=== PATIENT | male | born 1940 | race Caucasian/White ===

== ENCOUNTER 2022-12-22 10:58 | Emergency (ER) | payer MEDICARE ==
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
--- NOTE | 2022-12-22 12:08 | XRAY ---
Indication: Subacute trauma with bleeding. Multiple contiguous axial images obtained through the head without contrast. Comparison: None Left temporal parietal scalp hematoma measuring at least 6.7 x 1.8 x 6.7 cm. Normal appearing brain parenchyma, ventricles, and bony calvarium for patient's age. Visualized paranasal sinuses and mastoid air cells are clear. Impression: Large left temporal parietal scalp hematoma. No underlying fracture or acute intracranial abnormalities.
[2022-12-22 12:59] VITALS: BP 136/56; PULSE 74
[2022-12-22 13:00] VITALS: O2SAT 95
== END 2022-12-22 13:02 | disposition home or self-care (01) ==
LOC: ED 10:58
DX: S00.03XA Contusion of scalp, initial encounter (principal); V89.2XXA Person injured in unspecified motor-vehicle accident, traffic, initial encounter; E78.5 Hyperlipidemia, unspecified; I10 Essential (primary) hypertension; Z79.899 Other long term (current) drug therapy
CPT/HCPCS: 70450; 99283

== ENCOUNTER 2023-06-11 09:02 | Emergency (ER) | payer MEDICARE ==
[2023-06-11 09:19] VITALS: TEMP 96
[2023-06-11 09:27] LABS: Absolute Neutrophil Ct (ANC) 7.96 x10^3/uL (1.4-6.9); BASOPHIL % 0.3 % (0.0-0.4); Basophil (Absolute #) 0.03 x10^3/uL (0-0.4); Eosinophil % 0.3 % (0.00-5.0); Eosinophil (Absolute #) 0.03 x10^3/uL (0-0.5); Hemoglobin 13.7 g/dL (12.5-18.0); IMMATURE GRAN # 0.04 x10^3u/L (0.00-0.03); IMMATURE GRAN % 0.4 % (0.00-0.4); Lymphocyte (Absolute #) 1.24 x10^3/uL (1.0-4.6); Lymphocytes % 12.2 % (24.0-44.0); Mean Cell Volume 96.6 fL (78-100); Mean Corpuscular Hemoglobin 30.8 pg (26-32); Mean Corpuscular Hgb Concent. 31.9 g/dL (32-36); Mean Platelet Volume 10.4 fL (7.5-11.0); Monocyte (Absolute #) 0.88 x10^3/uL (0.0-1.3); Monocytes % 8.6 % (0.0-12.0); Neutrophil % 78.2 % (36.0-66.0); Platelet Count 129 x10^3/uL (150-450); Red Blood Count 4.45 x10^6/uL (4.1-5.6); Red Cell Distribution Width 16.7 % (11.5-14.0); White Blood Count 10.2 x10^3/uL (4.0-10.5)
--- NOTE | 2023-06-11 09:32 | XRAY ---
CLINICAL HISTORY:weakness COMPARISON:12/22/2022. TECHNIQUE:Multiple axial slices with coronal and sagittal reformatting from CT scan brain without contrast have been submitted for interpretation. FINDINGS: No acute intracranial hemorrhage, mass-effect or midline shift is noted. Generalized age-related brain involutional changes are noted. Few hypodensities are noted in bilateral periventricular and subcortical white matter. Sulci and gyri are symmetrical. Mac-white matter differentiation is grossly intact. Basal ganglia and thalami appear normal. Brainstem, cerebellum rest of the posterior fossa structures show no significant abnormality. Mild mucosal thickening is noted in right ethmoid air cells. Rest of the visualized paranasal sinuses and mastoid air cells are clear. Hyper-aeration of bilateral frontal sinuses is noted. Mild S-shaped deviated nasal septum is noted with a left-sided nasal spur. Orbits are intact. Interval resolution of right parietotemporal scalp hematoma. Soft tissues of the skull base and scalp region appear unremarkable in the current examination. Skull and visualized maxillofacial osseous structures are intact. IMPRESSION: 1. No acute intracranial abnormality was noted. 2. Generalized age-related brain involutional changes seen. 3. Chronic macrovascular ischemic changes noted in bilateral periventricular and subcortical white matter. 4. Mild mucosal thickening seen in right ethmoid air cells. 5. Interval resolution of right parietotemporal scalp hematoma. 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 Avalos. Electronically Signed by: Homero Tam MD. (06/11/2023 09:28:37 EST)
[2023-06-11 09:43] LABS: ALBUMIN 3.2 g/dL (3.5-5.0); ANION GAP 11.9 MEQ/L (5-15); BILIRUBIN,TOTAL 2.7 mg/dL (0.2-1.3); Calcium 8.6 mg/dL (8.4-10.2); Creatinine 1 1.03 mg/dL (0.66-1.25); EST GLOMERULAR FILTRATION RATE 72.5 ML/MIN; MAGNESIUM 1.8 mg/dL (1.6-2.3); Potassium 4.3 mmol/L (3.5-5.1); Total Protein 6.2 g/dL (6.3-8.2)
[2023-06-11 09:45] LABS: INR 1.1 (0.8-3.0); PROTIME 11.9 SECONDS (9.4-12.5); PTT 26.4 SECONDS (25.1-36.5)
[2023-06-11 10:11] LABS: INFLUENZA A NEGATIVE (NEGATIVE); INFLUENZA B NEGATIVE (NEGATIVE); RESPIRATORY SYNCTIAL VIRUS NEGATIVE (NEGATIVE); SARS-CoV-2 Xpert Express NEGATIVE (NEGATIVE)
[2023-06-11] MEDS ORDERED: Zofran 4 MG/2 ML VIAL IV ONE (10:17)
[2023-06-11] MEDS ORDERED: SUBLIMAZE 100 MCG/2 ML IV ONE (10:17)
[2023-06-11] MEDS ORDERED: SUBLIMAZE 100 MCG/2 ML ONE (10:29)
[2023-06-11] MEDS ORDERED: Zofran 4 MG/2 ML VIAL ONE (10:29)
[2023-06-11 10:48] VITALS: O2SAT 96
--- NOTE | 2023-06-11 11:03 | ERPHSYRPT ---
- History of Present Illness Time Seen by Provider: 06/11/23 09:11 Source: patient, family Exam Limitations: no limitations Patient Subjective Stated Complaint: Weakness Triage Nursing Assessment: ggg Physician History: 53 years old male with multiple medical problems including coronary artery disease status post stenting, hypertension, hyperlipidemia, COPD, obstructive sleep apnea, atrial fibrillation on Eliquis, previous neck surgeries with chronic neck pain presented in the ER with sudden onset pain left shoulder when he tried to put on his jacket almost an hour prior to arrival with numbness and weakness of left upper extremity. Patient had a questionable history of left facial droop as well. Denies any chest pain palpitations or shortness of breath. Patient has intact movements in the hand/forearm but restricted movements at left shoulder partially secondary to pain. Denies any visual disturbance, difficulty speech. Timing/Duration: hour(s) (1), sudden Severity: moderate Character of Deficits: new weakness Baseline/Normal Cognition: alert oriented x 3 Current Cognition: alert oriented x 3 Baseline Gait: walks w/o assistance Associated Symptoms: weakness Allergies/Adverse Reactions: terbinafine HCl [From Lamisil] Allergy (Severe, Verified 03/15/23 09:49) throat swelling, rash Penicillins Allergy (Verified 06/11/23 09:11) Home Medications: Metoprolol Tartrate 50 mg [Lopressor 50 MG] 50 mg PO DAILY 02/01/13 [History] Apixaban [Eliquis] 5 mg PO BID 03/15/23 [History] Atorvastatin Calcium [Lipitor 40Mg] 40 mg PO DAILY 03/15/23 [History] Furosemide 20 mg [Lasix 20 mg] 20 mg PO UD 03/15/23 [History] Levothyroxine Sodium 50 mcg PO DAILY 03/15/23 [History] Potassium Chloride 1 tab PO UD 03/15/23 [History] Sacubitril/Valsartan [Entresto 24 mg-26 mg Tablet] 1 tab PO DAILY 03/15/23 [History] Spironolactone 25 mg [Aldactone 25 MG] 12.5 mg PO UD 03/15/23 [History] Hx Tetanus, Diphtheria Vaccination/Date Given: Yes Hx Influenza Vaccination/Date Given: No Hx Pneumococcal Vaccination/Date Given: No Immunizations Up to Date: Yes Travel Risk - International Travel Have you traveled outside of the country in past 3 weeks: No - Coronavirus Screening Are you exhibiting any of the following symptoms?: No Close contact with a COVID-19 positive Pt in past 14-21 Days: No - Vaccine Status Have you recieved a Covid-19 vaccination: Yes [place] 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 - Vaccination Dates Date of 2cond Vaccination (if applicable): 2020 - Review of Systems Constitutional: No Symptoms Eyes: No Symptoms Ears, Nose, & Throat: No Symptoms Respiratory: No Symptoms Cardiac: No Symptoms Abdominal/Gastrointestinal: No Symptoms Genitourinary Symptoms: No Symptoms Musculoskeletal: Neck Pain, Joint Pain Skin: No Symptoms Neurological: Focal Weakness Psychological: No Symptoms Endocrine: No Symptoms Immunological/Allergic: No Symptoms - Past Medical History Pertinent Past Medical History: Yes Neurological History: No Pertinent History ENT History: No Pertinent History Cardiac History: Coronary Artery Disease, High Cholesterol, Hypertension, Myocardial Infarction ([place]) Respiratory History: COPD, Sleep Apnea Endocrine Medical History: No Pertinent History Musculoskeletal History: Degenerative Disk Disease GI Medical History: Gallbladder Disease, Hernia History: No Pertinent History Psycho-Social History: No Pertinent History Male Reproductive Disorders: No Pertinent History Other Medical History: HX OF [place] WITH CARDIAC STENT PLACEMENT X 2, CHOLECYSTECTOMY - Past Surgical History Past Surgical History: Yes Neuro Surgical History: No Pertinent History Cardiac: Cardiac Catheterization, Cardiac Stent Respiratory: No Pertinent History Gastrointestinal: Cholecystectomy Genitourinary: No Pertinent History Musculoskeletal: No Pertinent History Male Surgical History: No Pertinent History - Social History Smoking Status: Former smoker How long have you smoked: 30years Exposure to second hand smoke: No Drug Use: none Patient Lives Alone: No - Nursing Vital Signs Nursing Vital Signs: Initial Vital Signs Temperature 96.0 F 06/11/23 09:12 Pulse Rate 90 06/11/23 09:12 Respiratory Rate 18 06/11/23 09:12 Blood Pressure 98/64 06/11/23 09:12 O2 Sat by Pulse Oximetry 93 L 06/11/23 09:12 Pain Scale Pain Intensity 5 - [place] Coma Scale Best Eye Response ([place]): (4) open spontaneously Best Verbal Response ([place]): (5) oriented Best Motor Response ([place]): (6) obeys commands [place] Total: 15 - Physical Exam General Appearance: no apparent distress, alert Eye Exam: bilateral eye: normal inspection, PERRL, EOMI Ears, Nose, Throat Exam: normal ENT inspection Neck Exam: normal inspection, non-tender, supple Respiratory: normal breath sounds, lungs clear Cardiovascular: normal heart sounds, irregular Gastrointestinal: soft, normal bowel sounds, No tenderness Back Exam: normal inspection, normal range of motion Extremity Exam: normal inspection, No normal range of motion Mental Status: alert, oriented x 3, 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 Exam: normal hearing, normal speech, PERRL, No facial asymmetry Coordination/Gait: normal gait, No normal finger to nose (Abnormal left side) Motor/Sensory: no sensory deficit, No no pronator drift (Left ) DTR: bicep (R): 2+, bicep (L): 2+, tricep (R): 2+, tricep (L): 2+, knee (R): 2+, knee (L): 2+ Skin Exam: normal color SpO2 Interpretation: normal SpO2: 96 O2 Delivery: Room Air - Course EKG Interpreted by Me: RATE (90), A-fib, Left [place] Deviation, prolonged QT interval, Right Bundle Branch Block, Q-wave, Non-specific ST Changes Ordered Tests: Active Orders 24 hr Category Date Time 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 Care 06/11/23 09:15 Completed EKG-ER Only STAT Care 06/11/23 09:14 Completed IV Insertion STAT Care 06/11/23 09:14 Completed NPO (ED) STAT Care 06/11/23 09:14 Completed CHEST 1 VIEW (PORTABLE) Stat Exams 06/11/23 09:15 Completed HEAD WITHOUT CONTRAST [CT] Stat Exams 06/11/23 09:03 Completed SHOULDER Stat Exams 06/11/23 09:23 Completed CBC W DIFF Stat Lab 06/11/23 09:26 Completed CMP Stat Lab 06/11/23 09:26 Completed Lactic Acid Stat Lab 06/11/23 09:29 Completed MAGNESIUM Stat Lab 06/11/23 09:26 Completed NT PRO BNPII Stat Lab 06/11/23 09:26 Completed PROTIME WITH INR Stat Lab 06/11/23 09:26 Completed PTT Stat Lab 06/11/23 09:26 Completed TROPONIN Q4H Lab 06/11/23 09:26 Completed Medication Summary Discontinued Medications Generic Name Dose Route Start Last Admin Trade Name Freq PRN Reason Stop Dose Admin Fentanyl Citrate 50 mcg 06/11/23 10:17 06/11/23 10:32 Fentanyl Citrate 100 Mcg/2 Ml* Vial IV 06/11/23 10:18 50 mcg STAT ONE Administration Fentanyl Citrate Confirm 06/11/23 10:29 Fentanyl Citrate 100 Mcg/2 Ml* Vial Administered 06/11/23 10:30 Dose 100 mcg .ROUTE .STK-MED ONE Ondansetron HCl 4 mg 06/11/23 10:17 06/11/23 10:32 Ondansetron Hcl 4 Mg/2 Ml Vial IV 06/11/23 10:18 4 mg STAT ONE Administration Ondansetron HCl Confirm 06/11/23 10:29 Ondansetron Hcl 4 Mg/2 Ml Vial Administered 06/11/23 10:30 Dose 4 mg .ROUTE .STK-MED ONE Lab/Rad Data: Laboratory Result Diagrams 06/11/23 09:26 06/11/23 09:26 Laboratory Results 06/11/23 06/11/23 06/11/23 Range/Units 09:33 09:29 09:26 WBC (4.0-10.5) x10^3/uL RBC (4.1-5.6) x10^6/uL Hgb (12.5-18.0) g/dL Hct (42-50) % MCV (78-100) fL MCH (26-32) pg MCHC (32-36) g/dL RDW (11.5-14.0) % Plt Count (150-450) x10^3/uL MPV (7.5-11.0) fL Gran % (36.0-66.0) % Immature Gran % (Auto) (0.00-0.4) % Nucleat RBC Rel Count (0.00-0.1) % Eos # (Auto) (0-0.5) x10^3/uL Immature Gran # (Auto) (0.00-0.03) x10^3u/L Absolute Lymphs (auto) (1.0-4.6) x10^3/uL Absolute Monos (auto) (0.0-1.3) x10^3/uL Absolute Nucleated RBC (0.00-0.01) x10^3u/L Lymphocytes % (24.0-44.0) % Monocytes % (0.0-12.0) % Eosinophils % (0.00-5.0) % Basophils % (0.0-0.4) % Absolute Granulocytes (1.4-6.9) x10^3/uL Basophils # (0-0.4) x10^3/uL PT (9.4-12.5) SECONDS INR (0.8-3.0) APTT (25.1-36.5) SECONDS Sodium (137-145) mmol/L Potassium (3.5-5.1) mmol/L Chloride (98-107) mmol/L Carbon Dioxide (22-30) mmol/L Anion Gap (5-15) MEQ/L BUN (9-20) mg/dL Creatinine (0.66-1.25) mg/dL Estimated GFR ML/MIN Glucose (74-106) mg/dL Lactic Acid 2.1 H (0.4-2.0) Calcium (8.4-10.2) mg/dL Magnesium (1.6-2.3) mg/dL Total Bilirubin (0.2-1.3) mg/dL AST (17-59) U/L ALT (0-50) U/L Alkaline Phosphatase (38-126) U/L Troponin I (0.000-0.034) ng/mL NT-Pro-B Natriuret Pep 2970 (<300) pg/mL Serum Total Protein (6.3-8.2) g/dL Albumin (3.5-5.0) g/dL Influenza Type A Ag NEGATIVE (NEGATIVE) Influenza Type B Ag NEGATIVE (NEGATIVE) RSV (PCR) NEGATIVE (NEGATIVE) SARS-CoV-2 (PCR) NEGATIVE (NEGATIVE) 06/11/23 06/11/23 06/11/23 Range/Units 09:26 09:26 09:26 WBC (4.0-10.5) x10^3/uL RBC (4.1-5.6) x10^6/uL Hgb (12.5-18.0) g/dL Hct (42-50) % MCV (78-100) fL MCH (26-32) pg MCHC (32-36) g/dL RDW (11.5-14.0) % Plt Count (150-450) x10^3/uL MPV (7.5-11.0) fL Gran % (36.0-66.0) % Immature Gran % (Auto) (0.00-0.4) % Nucleat RBC Rel Count (0.00-0.1) % Eos # (Auto) (0-0.5) x10^3/uL Immature Gran # (Auto) (0.00-0.03) x10^3u/L Absolute Lymphs (auto) (1.0-4.6) x10^3/uL Absolute Monos (auto) (0.0-1.3) x10^3/uL Absolute Nucleated RBC (0.00-0.01) x10^3u/L Lymphocytes % (24.0-44.0) % Monocytes % (0.0-12.0) % Eosinophils % (0.00-5.0) % Basophils % (0.0-0.4) % Absolute Granulocytes (1.4-6.9) x10^3/uL Basophils # (0-0.4) x10^3/uL PT 11.9 (9.4-12.5) SECONDS INR 1.10 (0.8-3.0) APTT 26.4 (25.1-36.5) SECONDS Sodium 132 L (137-145) mmol/L Potassium 4.3 (3.5-5.1) mmol/L Chloride 99 (98-107) mmol/L Carbon Dioxide 25 (22-30) mmol/L Anion Gap 11.9 (5-15) MEQ/L BUN 25 H (9-20) mg/dL Creatinine 1.03 (0.66-1.25) mg/dL Estimated GFR 72.5 ML/MIN Glucose 221 H (74-106) mg/dL Lactic Acid (0.4-2.0) Calcium 8.6 (8.4-10.2) mg/dL Magnesium 1.8 (1.6-2.3) mg/dL Total Bilirubin 2.70 H (0.2-1.3) mg/dL AST 25 (17-59) U/L ALT 20 (0-50) U/L Alkaline Phosphatase 65 (38-126) U/L Troponin I < 0.012 (0.000-0.034) ng/mL NT-Pro-B Natriuret Pep (<300) pg/mL Serum Total Protein 6.2 L (6.3-8.2) g/dL Albumin 3.2 L (3.5-5.0) g/dL Influenza Type A Ag (NEGATIVE) Influenza Type B Ag (NEGATIVE) RSV (PCR) (NEGATIVE) SARS-CoV-2 (PCR) (NEGATIVE) 06/11/23 Range/Units 09:26 WBC 10.2 (4.0-10.5) x10^3/uL RBC 4.45 (4.1-5.6) x10^6/uL Hgb 13.7 (12.5-18.0) g/dL Hct 43.0 (42-50) % MCV 96.6 (78-100) fL MCH 30.8 (26-32) pg MCHC 31.9 L (32-36) g/dL RDW 16.7 H (11.5-14.0) % Plt Count 129 L (150-450) x10^3/uL MPV 10.4 (7.5-11.0) fL Gran % 78.2 H (36.0-66.0) % Immature Gran % (Auto) 0.4 (0.00-0.4) % Nucleat RBC Rel Count 0.0 (0.00-0.1) % Eos # (Auto) 0.03 (0-0.5) x10^3/uL Immature Gran # (Auto) 0.04 H (0.00-0.03) x10^3u/L Absolute Lymphs (auto) 1.24 (1.0-4.6) x10^3/uL Absolute Monos (auto) 0.88 (0.0-1.3) x10^3/uL Absolute Nucleated RBC 0.00 (0.00-0.01) x10^3u/L Lymphocytes % 12.2 L (24.0-44.0) % Monocytes % 8.6 (0.0-12.0) % Eosinophils % 0.3 (0.00-5.0) % Basophils % 0.3 (0.0-0.4) % Absolute Granulocytes 7.96 H (1.4-6.9) x10^3/uL Basophils # 0.03 (0-0.4) x10^3/uL PT (9.4-12.5) SECONDS INR (0.8-3.0) APTT (25.1-36.5) SECONDS Sodium (137-145) mmol/L Potassium (3.5-5.1) mmol/L Chloride (98-107) mmol/L Carbon Dioxide (22-30) mmol/L Anion Gap (5-15) MEQ/L BUN (9-20) mg/dL Creatinine (0.66-1.25) mg/dL Estimated GFR ML/MIN Glucose (74-106) mg/dL Lactic Acid (0.4-2.0) Calcium (8.4-10.2) mg/dL Magnesium (1.6-2.3) mg/dL Total Bilirubin (0.2-1.3) mg/dL AST (17-59) U/L ALT (0-50) U/L Alkaline Phosphatase (38-126) U/L Troponin I (0.000-0.034) ng/mL NT-Pro-B Natriuret Pep (<300) pg/mL Serum Total Protein (6.3-8.2) g/dL Albumin (3.5-5.0) g/dL Influenza Type A Ag (NEGATIVE) Influenza Type B Ag (NEGATIVE) RSV (PCR) (NEGATIVE) SARS-CoV-2 (PCR) (NEGATIVE) - Progress Progress: pain not gone completely, re-examined Progress Note: 06/11/23 11:26 83 years old is evaluated in the ER for sudden onset left shoulder pain and weakness almost an hour prior to arrival with questionable history of left facial droop. Patient does not have any facial droop or asymmetry on pre sentation in the ER. Patient does have weakness in left shoulder in all directions pretty much and having difficulty lifting it up but distal left upper extremity neuro is intact. No definitive tenderness in the left shoulder. He is made stroke activated and prompt CT head is obtained which is negative. Prompt neurology consult is obtained, patient is on Eliquis and is not a candidate for any kind of thrombolytics. Patient does have history of cervical spinal stenosis and surgery was done last year with pain off and on since then. Per neurology and I do think this is seems more of a peripheral would be brachial plexus injury/inflammation around/less likely musculoskeletal versus central stroke. It was recommended to have MRI of cervical spine with inclusion of brachial plexus for further evaluation. No MRI services are available here at [facility]. I have spoken with Dr. Adkins neurology at [facility] who recommended patient to be transferred to . Patient has a neurologist at [facility] and also neurosurgeon, patient does not want to go to [facility] at all. I have offered him transfer to [facility] but patient does not want to go there from the ER but to go home first and then we will drive up there with his . I have discussed with patient and in detail about risk of going via POV which could lead to worsening of condition including permanent disability but they want to go home and signed out AMA. Patient is not confused or altered at all. Patient is given one-time dose of fentanyl and his pain is much improved but still have some limitation of movement/weakness left shoulder. He is counseled about need for MRI for further evaluation to avoid worsening of condition and his will drive him to [facility]. Counseled on returning to emergency department for any kind of worsening which they understand and agree. Both and were involved in decision making. Chest x-ray negative for any acute findings. X-ray left shoulder are negative for any acute finding as well, both x-rays reviewed by me, official report is pending. 06/11/23 11:[address] Other (Telemetry neuro Dr. Steven Hassan and neurologist Dr. Adkins at [facility]) Counseled pt/family regarding: lab results, diagnosis, rad results Medical Desision Making - Independent Historian Additional History obtained from: Spouse - Discussion of managment Care discussed with:: specialist Reviewed:: Test results Agreed on:: Treatment plan - Diagnostic Testing Diagnostic test were ordered, analyzed, and reviewed by me: Yes Radiological Interpretation: Interpreted by me, Reviewed by me - Departure Departure Disposition: AMA Clinical Impression: Weakness, Acute shoulder pain Condition: Fair Critical Care Time: Yes Critical Care Time(excluding separately billable procedures): Critical 30-74 mins Referrals: JOSETTE MENDOZA [Primary Care Provider] - Follow up/PCP as directed
[2023-06-11 11:05] VITALS: BP 116/73; PULSE 76; RESP 20
--- NOTE | 2023-06-11 19:54 | XRAY ---
Indication: Chest pain. Comparison: February 11, 2023 Portable chest again demonstrates cardiomegaly with new left AICD. There remains mild left mid to lower lung infiltrate versus atelectasis. Bony thorax intact again with osteopenia and mild degenerative changes.
--- NOTE | 2023-06-11 19:56 | XRAY ---
Indication: Pain. Comparison: None 3 portable views left shoulder demonstrates osteopenia, advanced acromioclavicular degenerative changes, moderate glenohumeral degenerative changes, and mild degenerative changes throughout visualized spine. No acute findings. Chest reported separately.
== END 2023-06-11 11:18 | disposition left against medical advice (07) ==
LOC: ED 09:02
DX: R53.1 Weakness (principal); M25.512 Pain in left shoulder; I10 Essential (primary) hypertension; E78.5 Hyperlipidemia, unspecified; Z79.01 Long term (current) use of anticoagulants; Z79.899 Other long term (current) drug therapy; Z20.828 Contact with and (suspected) exposure to other viral communicable diseases
CPT/HCPCS: 0241U; 36000; 36415; 70450; 71045; 73030; 80053; 83605; 83735; 83880; 84484; 85025; 85610; 85730; 93005; 93041; 96374; 96375; 99284; J2405; J3010

== ENCOUNTER 2023-08-01 19:15 | Emergency (ER) | payer MEDICARE ==
[2023-08-01 19:27] VITALS: TEMP 97.1; O2SAT 97
--- NOTE | 2023-08-01 19:30 | ERPHSYRPT ---
- History of Present Illness Time Seen by Provider: 08/01/23 19:30 Source: patient, family Exam Limitations: no limitations Physician History: This is an 83-year-old white male patient was brought into the emergency department by the patient's spouse and complains of left shoulder pain. Patient injured it 8 months ago. He has seen orthopedic specialty and they have told him that they would not proceed with any type of surgical intervention on the shoulder secondary to his significant heart disease. The left shoulder intermittently bothersome. However, today he was "messing around and lifting things" at home and the pain is significant in his left shoulder. He denies shortness of breath. He denies chest pain. Patient presents to the emergency department only wanting medication to help relieve his pain in his left shoulder. Patient has a history of hypertension, hypothyroidism, hyperlipidemia and is on Eliquis. Patient does have significant cardiac disease. Occurred: this afternoon Method of Injury: other (Lifting twisting bending) Quality: constant, aching Severity of Pain-Max: moderate Severity of Pain-Current: moderate Extremities Pain Location: shoulder: left Modifying Factors: Improves With: movement Associated Symptoms: none Allergies/Adverse Reactions: terbinafine HCl [From Lamisil] Allergy (Severe, Verified 08/01/23 19:21) throat swelling, rash Penicillins Allergy (Verified 08/01/23 19:21) Home Medications: Metoprolol Tartrate 50 mg [Lopressor 50 MG] 50 mg PO BID 02/01/13 [History] Apixaban [Eliquis] 5 mg PO BID 03/15/23 [History] Atorvastatin Calcium [Lipitor 40Mg] 40 mg PO DAILY 03/15/23 [History] Furosemide 20 mg [Lasix 20 mg] 20 mg PO DAILY 03/15/23 [History] Levothyroxine Sodium 50 mcg PO DAILY 03/15/23 [History] Sacubitril/Valsartan [Entresto 24 mg-26 mg Tablet] 1 tab PO BID 03/15/23 [History] Spironolactone 25 mg [Aldactone 25 MG] 25 mg PO DAILY 03/15/23 [History] Acetaminophen 325 mg [Tylenol 325 mg] 650 mg PO Q4H PRN PRN 08/01/23 [History] Albuterol Sulfate [Proair Respiclick] 1 puff IH Q4H PRN PRN 08/01/23 [History] Aspirin [Aspirin EC] 81 mg PO DAILY 08/01/23 [History] Gabapentin 100 mg PO TID 08/01/23 [History] Hx Tetanus, Diphtheria Vaccination/Date Given: Yes Hx Influenza Vaccination/Date Given: No Hx Pneumococcal Vaccination/Date Given: No Travel Risk - International Travel Have you traveled outside of the country in past 3 weeks: No - Coronavirus Screening Are you exhibiting any of the following symptoms?: No Close contact with a COVID-19 positive Pt in past 14-21 Days: No - Vaccine Status Have you recieved a Covid-19 vaccination: Yes [employer]: [employer] - Vaccination Dates Date of 2cond Vaccination (if applicable): 2020 - Review of Systems Constitutional: No Symptoms Eyes: No Symptoms Ears, Nose, & Throat: No Symptoms Respiratory: No Symptoms Cardiac: No Symptoms Abdominal/Gastrointestinal: No Symptoms Genitourinary Symptoms: No Symptoms Musculoskeletal: Injury (Left shoulder) Skin: No Symptoms Neurological: No Symptoms Psychological: No Symptoms Endocrine: No Symptoms Hematologic/Lymphatic: No Symptoms Immunological/Allergic: No Symptoms All Other Systems: Reviewed and Negative - Past Medical History Pertinent Past Medical History: Yes Neurological History: No Pertinent History ENT History: No Pertinent History Cardiac History: Coronary Artery Disease, High Cholesterol, Hypertension, Myocardial Infarction ([place]) Respiratory History: COPD, Sleep Apnea Endocrine Medical History: No Pertinent History Musculoskeletal History: Degenerative Disk Disease GI Medical History: Gallbladder Disease, Hernia History: No Pertinent History Psycho-Social History: No Pertinent History Male Reproductive Disorders: No Pertinent History Other Medical History: HX OF [place] WITH CARDIAC STENT PLACEMENT X 2, CHOLECYSTECTOMY - Past Surgical History Past Surgical History: Yes Neuro Surgical History: No Pertinent History Cardiac: Cardiac Catheterization, Cardiac Stent, Internal Defibrillator Respiratory: No Pertinent History Gastrointestinal: Cholecystectomy Genitourinary: No Pertinent History Musculoskeletal: No Pertinent History Male Surgical History: No Pertinent History - Social History Smoking Status: Former smoker How long have you smoked: 30years Exposure to second hand smoke: No Drug Use: none Patient Lives Alone: No - Nursing Vital Signs Nursing Vital Signs: Initial Vital Signs Temperature 97.1 F 08/01/23 19:26 Pulse Rate 98 H 08/01/23 19:26 Respiratory Rate 18 02/05/24 19:26 Blood Pressure 114/82 02/05/24 19:26 O2 Sat by Pulse Oximetry 97 08/01/23 19:26 Pain Scale Pain Intensity 10 - Physical Exam General Appearance: no apparent distress, alert Eyes, Ears, Nose, Throat Exam: normal ENT inspection, moist mucous membranes Neck Exam: normal inspection, non-tender, supple, full range of motion Cardiovascular/Respiratory Exam: chest non-tender, normal breath sounds, regular rate/rhythm, no respiratory distress Abdominal Exam: non-tender Back Exam: normal inspection, normal range of motion, No CVA tenderness, No vertebral tenderness Shoulder Exam: normal inspection, no evidence of injury, limited ROM (Can Alberto to pain left shoulder) Elbow/Forearm Exam: normal inspection, non-tender, no evidence of injury, normal ROM Wrist Exam: normal inspection, non-tender, no evidence of injury, normal ROM Hand Exam: normal inspection, non-tender, no evidence of injury, normal ROM Neuro/Tendon Exam: normal sensation, normal motor functions, normal tendon functions, responds to pain, no evidence tendon injury Mental Status Exam: alert, oriented x 3, cooperative Skin Exam: normal color, warm, dry SpO2 Interpretation: normal SpO2: 97 O2 Delivery: Room Air - Course Nursing assessment & vital signs reviewed: Yes Ordered Tests: Medication Summary Discontinued Medications Generic Name Dose Route Start Last Admin Trade Name Noe PRN Reason Stop Dose Admin Methylprednisolone Sodium 0 mg 08/01/23 20:23 Succinate 125 mg/ Sterile IM 08/01/23 20:24 Water 2 ml STAT ONE Orphenadrine Citrate 100 mg 08/01/23 20:24 Orphenadrine Citrate 100 Mg Er Tab PO 08/01/23 20:25 STAT ONE Oxycodone/Acetaminophen 1 tab 08/01/23 20:23 Oxycodone Hcl/Apap 5 Mg/325 Mg Tablet PO 08/01/23 20:24 STAT STA Oxycodone/Acetaminophen 2 tab 08/01/23 20:24 Oxycodone Hcl/Apap 5 Mg/325 Mg Tablet PO 08/01/23 20:25 SENT HOME W/ PATIENT STA - Progress Progress: improved, pain not gone completely Progress Note: 08/01/23 20:34 This patient's medical workup is of low complexity. Patient refuses the workup including twelve-lead EKG, laboratory study, x-ray of the left shoulder. He only wants pain relief for this left shoulder pain that he is experiencing. I discussed with him the risks of not performing an x-ray and workup given the fact he has significant cardiac disease. I also discussed with him the benefits of having a full workup performed. He declines. He will sign AMA form and r efusal of care and radiographic studies. 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 Prescriptions: Prednisone 10 mg [Deltasone 10 mg] 10 mg PO TID #12 tablet Orphenadrine Citrate 100 mg [Norflex 100 MG Tablet] 100 mg PO BID #10 tab
[2023-08-01] MEDS ORDERED: solu-MEDROL ONE (20:32)
[2023-08-01] MEDS ORDERED: PERCOCET TABLET 5/325MG ONE ×2 (20:32→20:34)
[2023-08-01] MEDS ORDERED: Norflex 100 MG Tablet PO ONE (20:32)
[2023-08-01] MEDS ORDERED: Sterile H2O 10 ml IJ ONE (20:32)
[2023-08-01] MEDS: PERCOCET TABLET 5/325MG PO STA ×2 (20:34→20:37)
[2023-08-01] MEDS: Norflex 100 MG Tablet PO ONE (20:39)
[2023-08-01 20:42] VITALS: RESP 22
[2023-08-01] MEDS: solu-MEDROL 125 MG, Sterile H2O 10 ml 2 ML IM ONE (20:44)
[2023-08-01 20:59] VITALS: BP 143/62; PULSE 99
== END 2023-08-01 20:53 | disposition home or self-care (01) ==
LOC: ED 19:15
DX: M25.512 Pain in left shoulder (principal); I10 Essential (primary) hypertension; E78.5 Hyperlipidemia, unspecified; I25.10 Atherosclerotic heart disease of native coronary artery without angina pectoris; Z79.01 Long term (current) use of anticoagulants; Z79.52 Long term (current) use of systemic steroids; Z79.899 Other long term (current) drug therapy
CPT/HCPCS: 96372; 99283; J2930; A9270-GY

== ENCOUNTER 2023-11-01 18:50 | Emergency (ER) | payer MEDICARE ==
[~2023-11-01 18:50] MED LIST: Amidate 20 MG/10 ML IV ONE; Zemuron 100 MG/10 ML IV ONE
[2023-11-01] MEDS ORDERED: DUONEB 0.5-3 MG/3 ml Neb IH ONE (19:03)
[2023-11-01 19:07] VITALS: TEMP 97.6
--- NOTE | 2023-11-01 19:29 | ERPHSYRPT ---
- History of Present Illness Time Seen by Provider: 11/01/23 19:28 Source: patient Exam Limitations: no limitations Patient Subjective Stated Complaint: SOB Triage Nursing Assessment: Patient brought back to ED per w/c and transferred to bed with assist of 1. Patient has increased work of breathing. O2 sat noted to be 88% on room air. Patient placed on 2 liters per N/C and O2 stayed at 90%. RT called to bedside and patient placed on 6 liters per oxymask. Patient is A+O X3. Patient's skin flushed, warm and dry. Patient states one hour prior to arrival he was sitting in his recliner when he all of a sudden became very SOB and had some chest pain. Patient states the chest pain has resolved. Lungs noted to be diminished throughout. Physician History: 83-year-old male presents to our ED for evaluation of acute onset shortness of breath. Upon arrival to our ED patient's breathing was labored. Patient was 88% on room air. Patient currently on 12 L facemask. O2 sat is 90 to 92%. Diminished breath sounds bilaterally. Patient reports initially experiencing chest pain however the chest pain has not resolved. Patient symptoms are constant. Symptoms are moderate in intensity. Symptoms are worse with exert ion. Patient denies a history of the same. reports that patient has no renal history. No history of PE DVT. Patient has no calf pain or tenderness. They voiced no other complaints or concerns at this time. Portions of this note were created with voice recognition technology. There may be grammatical, spelling, punctuation or sound alike errors Timing/Duration: today Activities at Onset: none Severity of Dyspnea-Max: moderate Severity of Dyspnea-Current: moderate Possible Cause: no prior episodes Modifying Factors: Improves With: activity Allergies/Adverse Reactions: terbinafine HCl [From Lamisil] Allergy (Severe, Verified 11/01/23 18:55) throat swelling, rash Penicillins Allergy (Verified 11/01/23 18:55) Home Medications: Metoprolol Tartrate 50 mg [Lopressor 50 MG] 50 mg PO BID 02/01/13 [History] Apixaban [Eliquis] 5 mg PO BID 03/15/23 [History] RX: Atorvastatin Calcium [Lipitor 40Mg] 40 mg PO DAILY 03/15/23 [History] RX: Furosemide 20 mg [Lasix 20 mg] 20 mg PO DAILY 03/15/23 [History] RX: Levothyroxine Sodium 50 mcg PO DAILY 03/15/23 [History] RX: Spironolactone 25 mg [Aldactone 25 MG] 25 mg PO DAILY 03/15/23 [History] Sacubitril/Valsartan [Entresto 24 mg-26 mg Tablet] 1 tab PO BID 03/15/23 [History] Acetaminophen 325 mg [Tylenol 325 mg] 650 mg PO Q4H PRN PRN 08/01/23 [History] RX: Albuterol Sulfate [Proair Respiclick] 1 puff IH Q4H PRN PRN 08/01/23 [History] RX: Aspirin [Aspirin EC] 81 mg PO DAILY 08/01/23 [History] RX: Gabapentin 100 mg PO TID 08/01/23 [History] Hx Tetanus, Diphtheria Vaccination/Date Given: Yes Hx Influenza Vaccination/Date Given: No Hx Pneumococcal Vaccination/Date Given: No Immunizations Up to Date: Yes Travel Risk - International Travel Have you traveled outside of the country in past 3 weeks: No - Emerging Infectious Disease Are you exhibiting symptoms associated with any current EIDs: No - Review of Systems Constitutional: No Symptoms, No Fever, No Chills Eyes: No Symptoms Ears, Nose, & Throat: No Symptoms Respiratory: No Symptoms, No Cough, No Dyspnea Cardiac: No Symptoms, No Chest Pain, No Edema, No Syncope Abdominal/Gastrointestinal: No Symptoms, No Abdominal Pain, No Nausea, No Vomiting, No Diarrhea Genitourinary Symptoms: No Symptoms, No Dysuria Musculoskeletal: No Symptoms, No Back Pain, No Neck Pain Skin: No Symptoms, No Rash Neurological: No Symptoms, No Dizziness, No Focal Weakness, No Sensory Changes Psychological: No Symptoms Endocrine: No Symptoms Hematologic/Lymphatic: No Symptoms Immunological/Allergic: No Symptoms All Other Systems: Reviewed and Negative - Past Medical History Pertinent Past Medical History: Yes Neurological History: No Pertinent History ENT History: No Pertinent History Cardiac History: Coronary Artery Disease, High Cholesterol, Hypertension, Myocardial Infarction (MA) Respiratory History: COPD, Sleep Apnea Endocrine Medical History: No Pertinent History Musculoskeletal History: Degenerative Disk Disease GI Medical History: Gallbladder Disease, Hernia History: No Pertinent History Psycho-Social History: No Pertinent History Male Reproductive Disorders: No Pertinent History Other Medical History: HX OF MA WITH CARDIAC STENT PLACEMENT X 2, CHOLECYSTECTOMY - Past Surgical History Past Surgical History: Yes Neuro Surgical History: No Pertinent History Cardiac: Cardiac Catheterization, Cardiac Stent, Internal Defibrillator Respiratory: No Pertinent History Gastrointestinal: Cholecystectomy Genitourinary: No Pertinent History Musculoskeletal: No Pertinent History Male Surgical History: No Pertinent History - Social History Smoking Status: Former smoker How long have you smoked: 30years Exposure to second hand smoke: No Drug Use: none Patient Lives Alone: No - Nursing Vital Signs Nursing Vital Signs: Initial Vital Signs Temperature 97.6 F 11/01/23 18:55 Pulse Rate 121 H 11/01/23 18:55 Respiratory Rate 35 H 11/01/23 18:55 Blood Pressure 155/96 11/01/23 18:55 O2 Sat by Pulse Oximetry 86 L 11/01/23 18:55 Pain Scale Pain Intensity 0 - Physical Exam General Appearance: no apparent distress, alert Eye Exam: PERRL/EOMI, eyes nml inspection Ears, Nose, Throat Exam: hearing grossly normal, normal ENT inspection, normal pharynx Neck Exam: normal inspection, supple Respiratory Exam: respiratory distress, airway intact, accessory muscle use Cardiovascular/Chest Exam: normal heart sounds, regular rate/rhythm Abdominal/Gastrointestinal Exam: soft, No tenderness, No distention, No mass Extremity Exam: non-tender, normal range of motion, normal inspection, no calf tenderness, no pedal edema Neurologic Exam: alert, oriented x 3, cooperative, sailing officer II-XII nml as tested, sensation nml, No motor deficits Skin Exam: normal color, warm, No dry Lymphatic Exam: No adenopathy SpO2 Interpretation: normal SpO2: 92 O2 Delivery: Room Air Procedures - Chest Tube Time of Procedure: 23:00 Timeout: Performed Chest Tube Location: anterior axillary line Size of Belgian Tube (cm): 8 Chest Tube Procedure: betadine prep Anesthesia: 1% Lidocaine Volume Anesthetic (ccs): other (9) Villagran of Air [place]: Yes Tube Sutured to Skin: Yes Post Procedure CXR?: Yes Progress: Tube was visualized subcutaneously tube is out of place - Intubation Time of Intubation: 02:37 Intubation Indications: respiratory distress Intubation Method: orotracheal Tube Size (cm): 8.0 Medications: Ketamine, Rocuronium C-Spine: maintained Endotracheal Tube Confirmation: bilateral breath sounds, positive end tidal CO2, good rise & fall of chest Intubation Complications: no complications Performed By: Respiratory Therapy Post Intubation Xray: Yes Progress/X-ray Impression: Good positioning of ET tube 11/02/23 06:32 - Course Nursing assessment & vital signs reviewed: Yes EKG Interpreted by Me: RATE (121), A-fib, NORMAL AXIS, NORMAL INTERVALS (abnormal Q waves. 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 Care 11/01/23 19:22 Active EKG-ER Only STAT Care 11/01/23 19:21 Active IV Insertion STAT Care 11/01/23 19:21 Active Pulse Oximetry (ED) STAT Care 11/01/23 19:21 Active ABDOMEN AND PELVIS W/0 CONTRAS [CT] Routine Exams 11/01/23 19:51 Taken CHEST 1 VIEW (PORTABLE) Stat Exams 11/01/23 19:19 Taken CHEST 1 VIEW (PORTABLE) Stat Exams 11/01/23 23:38 Completed CHEST 1 VIEW (PORTABLE) Stat Exams 11/02/23 01:20 Taken CHEST 1 VIEW (PORTABLE) Stat Exams 11/02/23 01:32 Completed CHEST 1 VIEW (PORTABLE) Stat Exams 11/02/23 02:37 Completed CHEST 1 VIEW (PORTABLE) Stat Exams 11/02/23 03:06 Completed CHEST 1 VIEW (PORTABLE) Stat Exams 11/02/23 04:13 Completed CHEST WITH CONTRAST [CT] Stat Exams 11/01/23 19:22 Taken ABG [ARTERIAL BLOOD GASES] Routine Lab 11/02/23 04:35 Results ABG [ARTERIAL BLOOD GASES] Stat Lab 11/02/23 03:08 Completed CBC W DIFF Stat Lab 11/01/23 20:10 Completed CMP Stat Lab 11/01/23 20:10 Completed UA W/RFX UR CULTURE Stat Lab 11/01/23 21:57 Completed UA W/RFX UR CULTURE Stat Lab 11/02/23 03:24 Completed BiPap/CPAP ROUTINE RT 11/01/23 20:33 Active Intubate Patient STAT RT 11/02/23 05:04 Active Respiratory Therapy Assessment DAILY RT 11/01/23 20:33 Active Standby ROUTINE RT 11/01/23 23:56 Active Ventilator Management Q4H RT 11/02/23 05:03 Active Medication Summary Generic Name Dose Route Start Last Admin Trade Name Noe PRN Reason Stop Dose Admin Magnesium Sulfate/Dextrose 100 mls @ 100 mls/hr 11/01/23 19:30 11/01/23 23:55 Magnesium 1 Gm / 100 Ml D5w IV 11/01/23 21:29 100 mls/hr Q1H ROXANA Administration Discontinued Medications Generic Name Dose Route Start Last Admin Trade Name Noe PRN Reason Stop Dose Admin Albuterol/Ipratropium Confirm 11/01/23 19:03 Ipratropium/Albuterol Sulfate 3 Ml Ampul.Neb Administered 11/01/23 19:04 Dose 3 ml IH .STK-MED ONE Albuterol/Ipratropium 3 ml 11/01/23 19:21 11/01/23 20:32 Ipratropium/Albuterol Sulfate 3 Ml Ampul.Neb IH 11/01/23 19:22 3 ml STAT ONE Administration Albuterol/Ipratropium Confirm 11/02/23 02:38 Ipratropium/Albuterol Sulfate 3 Ml Ampul.Neb Administered 11/02/23 02:39 Dose 3 ml IH .STK-MED ONE Methylprednisolone Sodium 0 mg 11/01/23 19:21 11/01/23 21:52 Succinate 125 mg/ Sterile IV 11/01/23 19:22 125 mg Water 2 ml STAT ONE Administration Fentanyl Citrate Confirm 11/02/23 02:56 Fentanyl Citrate/Pf 500 Mcg/10 Ml Vial Administered 11/02/23 02:57 Dose 1,500 mcg IV .STK-MED ONE Hydromorphone HCl Confirm 11/02/23 03:03 Hydromorphone 1 Mg/1ml Inj Administered 11/02/23 03:04 Dose 1 mg .ROUTE .STK-MED ONE Hydromorphone HCl Confirm 11/02/23 04:45 Hydromorphone 1 Mg/1ml Inj Administered 11/02/23 04:46 Dose 1 mg .ROUTE .STK-MED ONE Propofol Confirm 11/02/23 02:56 Propofol 1000 Mg/100 Ml Bottle Administered 11/02/23 02:57 Dose 100 mls @ ud IV .STK-MED ONE Sodium Chloride Confirm 11/02/23 02:56 Sodium Chloride 0.9% 150 Ml Administered 11/02/23 02:57 Dose 150 mls @ ud IV .STK-MED ONE Norepinephrine/Dextrose Confirm 11/02/23 04:49 Norepinephrine 8 Mg/250 Ml-D5w Administered 11/02/23 04:50 Dose 8 mg in 250 mls @ ud IV .STK-MED ONE Sodium Chloride Confirm 11/02/23 04:51 Sodium Chloride 0.9% 1000 Ml Administered 11/02/23 04:52 Dose 1,000 mls @ ud .ROUTE .STK-MED ONE Ceftriaxone Sodium Confirm 11/02/23 04:57 Rocephin 2 Gm/100 Ml Nacl Administered 11/02/23 04:58 Dose 2 gm in 100 mls @ ud IV .STK-MED ONE Ketamine HCl Confirm 11/01/23 22:30 Ketamine Hcl 50 Mg/Ml Administered 11/01/23 22:31 Dose 50 mg .ROUTE .STK-MED ONE Lidocaine HCl Confirm 11/01/23 23:18 Lidocaine Hcl 1% 20 Ml Mdv 20 Ml Ml Administered 11/01/23 23:19 Dose 10 ml .ROUTE .STK-MED ONE Lidocaine HCl 10 ml 11/02/23 00:44 11/02/23 00:49 Lidocaine Hcl 1% 20 Ml Mdv 20 Ml Ml IJ 11/02/23 00:45 10 ml STAT ONE Administration Methylprednisolone Sodium Succinate Confirm 11/01/23 21:47 Methylprednis Sod Succ 125 Mg/2 Ml Vial Administered 11/01/23 21:48 Dose 125 mg .ROUTE .STK-MED ONE Sterile Water Confirm 11/01/23 21:47 Water For Injection,Sterile 10 Ml Vial Administered 11/01/23 21:48 Dose 10 ml IJ .STK-MED ONE Lab/Rad Data: Laboratory Result Diagrams 11/01/23 20:10 11/01/23 20:10 Laboratory Results 11/02/23 11/02/23 11/02/23 Range/Units 04:35 03:24 03:08 WBC (4.0-10.5) x10^3/uL RBC (4.1-5.6) x10^6/uL Hgb (12.5-18.0) g/dL Hct (42-50) % MCV (78-100) fL MCH (26-32) pg MCHC (32-36) g/dL RDW (11.5-14.0) % Plt Count (150-450) x10^3/uL MPV (7.5-11.0) fL Gran % (36.0-66.0) % Immature Gran % (Auto) (0.00-0.4) % Nucleat RBC Rel Count (0.00-0.1) % Eos # (Auto) (0-0.5) x10^3/uL Immature Gran # (Auto) (0.00-0.03) x10^3u/L Absolute Lymphs (auto) (1.0-4.6) x10^3/uL Absolute Monos (auto) (0.0-1.3) x10^3/uL Absolute Nucleated RBC (0.00-0.01) x10^3u/L Lymphocytes % (24.0-44.0) % Monocytes % (0.0-12.0) % Eosinophils % (0.00-5.0) % Basophils % (0.0-0.4) % Absolute Granulocytes (1.4-6.9) x10^3/uL Basophils # (0-0.4) x10^3/uL Puncture Site Pending RIGHT RADIAL pCO2 53 H 54 H (35-45) mmHg pO2 133 H* 77 (75-100) mmHg Base Excess -3.5 L -4.5 L (-2.0-2.0) O2 Saturation 97.5 92.5 L (94-100) g/dF ABG pH 7.27 L 7.25 L* (7.35-7.45) ABG HCO3 24.3 23.7 (22-28) ABG O2 Sat (Measured) 99.9 94.1 L (95-100) % Mehdi Test Pending YES A-a Gradient 371 569 a/A Ratio 0.26 0.12 Hemoglobin 16.7 16.7 Carboxyhemoglobin 1.6 0.9 (0.0-6.9) % THgb Methemoglobin 0.8 L 0.9 L (1.4-1.5) % Temperature 37.0 37.0 C POC O2 Flow Rate 80 100 % Vent Mode VC/AC Vent Rate 18 /MIN Tidal Volume 500 cc PEEP 5 cmH2O Sodium (135-145) mmol/L Potassium 4.7 4.4 (3.5-5.1) mmol/L Chloride (98-107) mmol/L Carbon Dioxide (22-30) mmol/L Anion Gap (5-15) MEQ/L BUN (9-20) mg/dL Creatinine (0.66-1.25) mg/dL Estimated GFR ML/MIN Glucose (74-106) mg/dL Calcium (8.4-10.2) mg/dL Total Bilirubin (0.2-1.3) mg/dL AST (17-59) U/L ALT (0-50) U/L Alkaline Phosphatase (38-126) U/L Serum Total Protein (6.3-8.2) g/dL Albumin (3.5-5.0) g/dL Urine Color Yellow (Yellow) Urine Appearance Clear (Clear) Urine pH 5.5 (4.6-8.0) Ur Specific [place] >=1.030 A (1.005-1.030) Urine Protein Negative (Negative) Urine Glucose (UA) Negative (Negative) mg/dL Urine Ketones Negative (Negative) Urine Blood Negative (Negative) Urine Nitrite Negative (Negative) Urine Bilirubin Negative (Negative) Urine Urobilinogen 1.0 A (0.2) mg/dL Ur Leukocyte Esterase Negative (Negative) U Hyaline Cast (Auto) NONE SEEN (0-2) /LPF Urine Microscopic RBC 0-2 (0-5) /HPF Urine Microscopic WBC 0-2 (0-5) /HPF Ur Epithelial Cells None Seen (None Seen) /HPF Urine Bacteria None Seen (None Seen) /HPF Urine Culture Reflexed NO (NO) Influenza Type A Ag (NEGATIVE) Influenza Type B Ag (NEGATIVE) RSV (PCR) (NEGATIVE) SARS-CoV-2 (PCR) (NEGATIVE) 11/01/23 11/01/23 11/01/23 Range/Units 21:57 20:10 20:10 WBC 6.6 (4.0-10.5) x10^3/uL RBC 5.19 (4.1-5.6) x10^6/uL Hgb 16.2 (12.5-18.0) g/dL Hct 50.3 H (42-50) % MCV 96.9 (78-100) fL MCH 31.2 (26-32) pg MCHC 32.2 (32-36) g/dL RDW 14.2 H (11.5-14.0) % Plt Count 156 (150-450) x10^3/uL MPV 10.7 (7.5-11.0) fL Gran % 51.3 (36.0-66.0) % Immature Gran % (Auto) 0.3 (0.00-0.4) % Nucleat RBC Rel Count 0.0 (0.00-0.1) % Eos # (Auto) 0.11 (0-0.5) x10^3/uL Immature Gran # (Auto) 0.02 (0.00-0.03) x10^3u/L Absolute Lymphs (auto) 2.29 (1.0-4.6) x10^3/uL Absolute Monos (auto) 0.72 (0.0-1.3) x10^3/uL Absolute Nucleated RBC 0.00 (0.00-0.01) x10^3u/L Lymphocytes % 34.9 (24.0-44.0) % Monocytes % 11.0 (0.0-12.0) % Eosinophils % 1.7 (0.00-5.0) % Basophils % 0.8 (0.0-0.4) % Absolute Granulocytes 3.38 (1.4-6.9) x10^3/uL Basophils # 0.05 (0-0.4) x10^3/uL Puncture Site pCO2 (35-45) mmHg pO2 (75-100) mmHg Base Excess (-2.0-2.0) O2 Saturation (94-100) g/dF ABG pH (7.35-7.45) ABG HCO3 (22-28) ABG O2 Sat (Measured) (95-100) % Mehdi Test A-a Gradient a/A Ratio Hemoglobin Carboxyhemoglobin (0.0-6.9) % THgb Methemoglobin (1.4-1.5) % Temperature C POC O2 Flow Rate % Vent Mode Vent Rate /MIN Tidal Volume cc PEEP cmH2O Sodium 133 L (135-145) mmol/L Potassium 4.3 (3.5-5.1) mmol/L Chloride 100 (98-107) mmol/L Carbon Dioxide 22 (22-30) mmol/L Anion Gap 14.5 (5-15) MEQ/L BUN 22 H (9-20) mg/dL Creatinine 1.06 (0.66-1.25) mg/dL Estimated GFR 70.1 ML/MIN Glucose 172 H (74-106) mg/dL Calcium 8.5 (8.4-10.2) mg/dL Total Bilirubin 2.20 H (0.2-1.3) mg/dL AST 24 (17-59) U/L ALT 17 (0-50) U/L Alkaline Phosphatase 76 (38-126) U/L Serum Total Protein 6.7 (6.3-8.2) g/dL Albumin 3.6 (3.5-5.0) g/dL Urine Color Yellow (Yellow) Urine Appearance Clear (Clear) Urine pH 5.5 (4.6-8.0) Ur Specific [place] >=1.030 A (1.005-1.030) Urine Protein Negative (Negative) Urine Glucose (UA) Negative (Negative) mg/dL Urine Ketones Negative (Negative) Urine Blood Negative (Negative) Urine Nitrite Negative (Negative) Urine Bilirubin Negative (Negative) Urine Urobilinogen 1.0 A (0.2) mg/dL Ur Leukocyte Esterase Negative (Negative) U Hyaline Cast (Auto) NONE SEEN (0-2) /LPF Urine Microscopic RBC 0-2 (0-5) /HPF Urine Microscopic WBC 0-2 (0-5) /HPF Ur Epithelial Cells None Seen (None Seen) /HPF Urine Bacteria None Seen (None Seen) /HPF Urine Culture Reflexed NO (NO) Influenza Type A Ag (NEGATIVE) Influenza Type B Ag (NEGATIVE) RSV (PCR) (NEGATIVE) SARS-CoV-2 (PCR) (NEGATIVE) 11/01/23 Range/Units 20:00 WBC (4.0-10.5) x10^3/uL RBC (4.1-5.6) x10^6/uL Hgb (12.5-18.0) g/dL Hct (42-50) % MCV (78-100) fL MCH (26-32) pg MCHC (32-36) g/dL RDW (11.5-14.0) % Plt Count (150-450) x10^3/uL MPV (7.5-11.0) fL Gran % (36.0-66.0) % Immature Gran % (Auto) (0.00-0.4) % Nucleat RBC Rel Count (0.00-0.1) % Eos # (Auto) (0-0.5) x10^3/uL Immature Gran # (Auto) (0.00-0.03) x10^3u/L Absolute Lymphs (auto) (1.0-4.6) x10^3/uL Absolute Monos (auto) (0.0-1.3) x10^3/uL Absolute Nucleated RBC (0.00-0.01) x10^3u/L Lymphocytes % (24.0-44.0) % Monocytes % (0.0-12.0) % Eosinophils % (0.00-5.0) % Basophils % (0.0-0.4) % Absolute Granulocytes (1.4-6.9) x10^3/uL Basophils # (0-0.4) x10^3/uL Puncture Site pCO2 (35-45) mmHg pO2 (75-100) mmHg Base Excess (-2.0-2.0) O2 Saturation (94-100) g/dF ABG pH (7.35-7.45) ABG HCO3 (22-28) ABG O2 Sat (Measured) (95-100) % Mehdi Test A-a Gradient a/A Ratio Hemoglobin Carboxyhemoglobin (0.0-6.9) % THgb Methemoglobin (1.4-1.5) % Temperature C POC O2 Flow Rate % Vent Mode Vent Rate /MIN Tidal Volume cc PEEP cmH2O Sodium (135-145) mmol/L Potassium (3.5-5.1) mmol/L Chloride (98-107) mmol/L Carbon Dioxide (22-30) mmol/L Anion Gap (5-15) MEQ/L BUN (9-20) mg/dL Creatinine (0.66-1.25) mg/dL Estimated GFR ML/MIN Glucose (74-106) mg/dL Calcium (8.4-10.2) mg/dL Total Bilirubin (0.2-1.3) mg/dL AST (17-59) U/L ALT (0-50) U/L Alkaline Phosphatase (38-126) U/L Serum Total Protein (6.3-8.2) g/dL Albumin (3.5-5.0) g/dL Urine Color (Yellow) Urine Appearance (Clear) Urine pH (4.6-8.0) Ur Specific [place] (1.005-1.030) Urine Protein (Negative) Urine Glucose (UA) (Negative) mg/dL Urine Ketones (Negative) Urine Blood (Negative) Urine Nitrite (Negative) Urine Bilirubin (Negative) Urine Urobilinogen (0.2) mg/dL Ur Leukocyte Esterase (Negative) U Hyaline Cast (Auto) (0-2) /LPF Urine Microscopic RBC (0-5) /HPF Urine Microscopic WBC (0-5) /HPF Ur Epithelial Cells (None Seen) /HPF Urine Bacteria (None Seen) /HPF Urine Culture Reflexed (NO) Influenza Type A Ag NEGATIVE (NEGATIVE) Influenza Type B Ag NEGATIVE (NEGATIVE) RSV (PCR) NEGATIVE (NEGATIVE) SARS-CoV-2 (PCR) NEGATIVE (NEGATIVE) - Progress Progress: improved Air Movement: good Progress Note: 83-year-old male presents to our emergency department for evaluation of acute onset shortness of breath. CTA chest negative for PE. However on the CT chest we observed patient's aorta to be enlarged. So we extended the study to include the abdomen and pelvis. No acute findings on the CT abdomen pelvis. However right pneumothorax observed. Right pneumothorax also observed on chest x-ray. Patient with a history of MA cardiac stent on Eliquis. We contemplated reversal of the Eliquis. We consulted with Dr. Stern. He advised avoiding a s tandard chest tube and recommended pigtail catheter instead. We were concerned that the larger chest tube would be a bleeding risk in light of his Eliquis. We consulted with Dr. Stern coding validator who advised placing a Heimlich pigtail catheter instead of a standard chest tube due to the concerns for bleeding. I spoke to Dr. Stern approximately 2019. During this time patient was on supplemental oxygen via facemask. After looking and eventually finding a pigtail catheter we performed a pigtail catheter chest tube insertion. Initial pigtail catheter insertion was at approximately 2300. Chest x-ray completed at approximately 2338. The pigtail catheter was observed to be displaced subcutaneously. Second pigtail catheter was placed at approximately 100. Confirmation was made via placing tip into water and observing bubble formation. However chest x-ray performed at 07 16 did not visualize the pigtail catheter. Second pigtail catheter procedure note. Procedure was performed at approximately 0100 tube was placed right anterior mid axillary line Timeout performed, size of Belgian tube was 8. Chest tube procedure was prepped using Betadine prep. Anesthesia was obtained using 1% lidocaine no epinephrine. Volume used was 5ml. Villagran of air heard no tube drainage tube sutured to skin. Post procedure chest x-ray completed. Shortness of breath began to worsen. Chest x-ray ordered at 0132. Due to worsening shortness of breath patient was intubated. Case discussed with Dr. Candelaria coding validator. He advised decreasing PEEP to 4 at approximately 2:50am Patient intubated approximately 0237 post intubation chest x-ray at 0306 revealed a tension pneumothorax. Patient intubated with ketamine and rocuronium Vent settings were assist-control, tidal volume of 500 which was later increased to 550. Rate of 18. O2 of 100% PEEP of 5 A 16 Belgian catheter was then placed approximately 0310 saturations and heart rate improved. Chest x-ray confirmed placement of chest tube and resolution of pneumothorax. Chest tube procedure note: Time of procedure was 03 10. Tube was placed right anterior mid axillary line. Timeout was performed. Size of Belgian tube was 16 chest tube procedure was prepped using Betadine prep volume of anesthetic placed was none. Patient was intubated and sedated villagran of air observed. Large villagran of air observed. Chest tube drained large amounts of gross blood. Tube was sutured to the skin. Post procedure chest x-ray revealed resolution of tension pneumothorax. Saturation improved. Case Discussed with Dr. Reed at 3:[address] Reed accepts transfer. 11/02/23 03:34 83-year-old male presents to our ED for respiratory distress. Imaging study reveals a pneumothorax. Due to patient on Eliquis patient not a candidate for a standard chest tube. 2 unsuccessful pigtail catheters. Patient required saeid dard chest tube. Large blood obtained in Vacutainer. Anticoagulation reversed. Patient transferred to [facility]. Complexity problem addressed is high. Threat to bodily function Critical care time greater than 194 minutes. Complexity of data reviewed and analyzed is extensive. Test ordered test reviewed results analyzed and correlated clinically with history and physical examination. Multiple discussions with coding validator, receiving hospitalist. Risk of complication and or risk morbidity/mortality patient management is high patient requires transfer to higher level of care. Vital stable prior to transfer. Plan of care established via shared decision making with patient's . No social determinants to impede follow-up. Portions of this note were created with voice recognition technology. There may be grammatical, spelling, punctuation or sound alike errors 11/02/23 06:36 Blood Culture(s) Obtained: No Antibiotics given: No Discussed with : Other Will see patient in: other Counseled pt/family regarding: lab results, diagnosis, rad results - Departure Departure Disposition: Transfer Clinical Impression: Pneumothorax, Tension pneumothorax, Respiratory distress Condition: Stable Critical Care Time: Yes Critical Care Time(excluding separately billable procedures): Critcal > 194 mins Referrals: JOSETTE MENDOZA [Primary Care Provider] - Follow up/PCP as directed
[2023-11-01 20:17] LABS: Absolute Neutrophil Ct (ANC) 3.38 x10^3/uL (1.4-6.9); BASOPHIL % 0.8 % (0.0-0.4); Basophil (Absolute #) 0.05 x10^3/uL (0-0.4); Eosinophil % 1.7 % (0.00-5.0); Eosinophil (Absolute #) 0.11 x10^3/uL (0-0.5); Hematocrit 50.3 % (42-50); Hemoglobin 16.2 g/dL (12.5-18.0); IMMATURE GRAN # 0.02 x10^3u/L (0.00-0.03); IMMATURE GRAN % 0.3 % (0.00-0.4); Lymphocyte (Absolute #) 2.29 x10^3/uL (1.0-4.6); Lymphocytes % 34.9 % (24.0-44.0); Mean Cell Volume 96.9 fL (78-100); Mean Corpuscular Hemoglobin 31.2 pg (26-32); Mean Corpuscular Hgb Concent. 32.2 g/dL (32-36); Mean Platelet Volume 10.7 fL (7.5-11.0); Monocyte (Absolute #) 0.72 x10^3/uL (0.0-1.3); Neutrophil % 51.3 % (36.0-66.0); Platelet Count 156 x10^3/uL (150-450); Red Blood Count 5.19 x10^6/uL (4.1-5.6); Red Cell Distribution Width 14.2 % (11.5-14.0); White Blood Count 6.6 x10^3/uL (4.0-10.5)
[2023-11-01] MEDS: DUONEB 0.5-3 MG/3 ml Neb IH ONE (20:32)
[2023-11-01 20:33] LABS: ALBUMIN 3.6 g/dL (3.5-5.0); ANION GAP 14.5 MEQ/L (5-15); BILIRUBIN,TOTAL 2.2 mg/dL (0.2-1.3); Calcium 8.5 mg/dL (8.4-10.2); Creatinine 1 1.06 mg/dL (0.66-1.25); EST GLOMERULAR FILTRATION RATE 70.1 ML/MIN; Potassium 4.3 mmol/L (3.5-5.1); Total Protein 6.7 g/dL (6.3-8.2)
[2023-11-01 20:54] LABS: INFLUENZA A NEGATIVE (NEGATIVE); INFLUENZA B NEGATIVE (NEGATIVE); RESPIRATORY SYNCTIAL VIRUS NEGATIVE (NEGATIVE); SARS-CoV-2 Xpert Express NEGATIVE (NEGATIVE)
[2023-11-01] MEDS ORDERED: Sterile H2O 10 ml IJ ONE (21:47)
[2023-11-01] MEDS ORDERED: Magnesium 1 Gm / 100 Ml D5W*** 100 ML IV ONE ×2 (21:47→23:54)
[2023-11-01] MEDS ORDERED: solu-MEDROL ONE (21:47)
[2023-11-01] MEDS: solu-MEDROL 125 MG, Sterile H2O 10 ml 2 ML IV ONE (21:52)
[2023-11-01] MEDS: Magnesium 1 Gm / 100 Ml D5W*** 100 ML IV SCH (21:53)
[2023-11-01] MEDS ORDERED: Ketamine HCl 50 MG/ML ONE (22:30)
[2023-11-01 22:48] LABS: ADD URINE CULTURE? NO (NO); Appearance Clear (Clear); Bacteria None Seen /HPF (None Seen); Bilirubin Negative (Negative); Blood Negative (Negative); Epithelial Cells None Seen /HPF (None Seen); Glucose, Urine Negative (Negative); Hyaline Casts NONE SEEN /LPF (0-2); Ketones Negative (Negative); Leukocyte Esterase Negative (Negative); Nitrite Negative (Negative); Ph 5.5 (4.6-8.0); Protein,Urine Dip Negative (Negative); RBC 0-2 /HPF (0-5); Specific Gravity >=1.030 (1.005-1.030); WBC 0-2 /HPF (0-5)
[2023-11-01] MEDS ORDERED: XYLOCAINE 1% HCL 20 ML MDV ONE (23:18)
[2023-11-02] MEDS: XYLOCAINE 1% HCL 20 ML MDV IJ ONE (00:49)
[2023-11-02] MEDS ORDERED: BALFAXAR 500 UNIT VIAL IV ONE (01:30)
--- NOTE | 2023-11-02 01:45 | XRAY ---
CLINICAL HISTORY: CT PLACEMENT COMPARISON: None. TECHNIQUE: X-ray examination of the chest AP portable performed in 1 view. FINDINGS: Right upper/mid-zones pneumothorax, approximately 40-60%. The distal tip of a right chest drain is seen in the subcutaneous/right lateral chest wall soft tissue. Contracted right lung towards the right hilum. Prominent and coarse bronchovascular marking in both lungs could be due to interstitial lung disease. Possible mild left pleural effusion. The pacemaker device and wires are seen in place and intact. Heart size appears enlarged in this view. Visualized bones are intact. Osteoarthritic changes at shoulder joints. IMPRESSION: 1. Right upper/mid-zones pneumothorax, approximately 40-60%. 2. The distal tip of a right chest drain is seen in the subcutaneous/right lateral chest wall soft tissue. Repositioning is advised. 3. Prominent and coarse bronchovascular marking in both lungs could be due to interstitial lung disease. 4. Possible mild left pleural effusion. [facility] ER was called at [phone] at 12:39 AM CROZER, 11/02/2023 and critical medical results were verbally communicated to Norris Conner. Electronically Signed by: Homero Tam MD. (11/02/2023 01:41:56 EDT)
[2023-11-02] MEDS ORDERED: DUONEB 0.5-3 MG/3 ml Neb IH ONE (02:38)
--- NOTE | 2023-11-02 02:39 | XRAY ---
CLINICAL HISTORY: chest tube placement COMPARISON: 11/02/2023 TECHNIQUE: X-ray chest frontal projection 1 view. FINDINGS: poor respiratory effort noted a chest tube is seen in place with its tip in between the third and fourth rib on the right side. A trace of /minimal pneumothorax is still seen right costophrenic angle. minimal subcutaneous emphysema is seen along the right lateral chest wall. pacemaker with its leads seen in place heart size is normal. Blunting of the left costophrenic angle could be due to left-sided pleural effusion. Re-demonstration of thoracic spine spondylosis. subtle changes involving the shoulder joints. IMPRESSION: 1. A chest tube is seen in place on the right side. 2. As compared to the previous significant reduction in the size of the pneumothorax only a trace amount of pneumothorax is seen in the right costophrenic angle. Electronically Signed by: Homero Tam MD. (11/02/2023 02:35:32 EDT)
[2023-11-02] MEDS ORDERED: Propofol 1000 mg/100 ml Bottle 100 ML IV ONE (02:56)
[2023-11-02] MEDS ORDERED: Sodium Chloride 0.9% 150 ML 150 ML IV ONE (02:56)
[2023-11-02] MEDS ORDERED: FENTANYL 500 MCG/10 ML VIAL IV ONE (02:56)
[2023-11-02] MEDS ORDERED: Hydromorphone 1 mg/ml Injection ONE ×2 (03:03→04:45)
[2023-11-02 03:09] LABS: A-aADO2 569; ABG HEMOGLOBIN 16.7; ABG POTASSIUM 4.4 (3.5-5.1); ARTERIAL BLD GAS O2 SATURATION 94.1 % (95-100); ARTERIAL BLOOD GAS BASE EXCESS -4.5 (-2.0-2.0); ARTERIAL BLOOD GAS FIO2 100 %; ARTERIAL BLOOD GAS PCO2 54 mmHg (35-45); ARTERIAL BLOOD GAS PO2 77 mmHg (75-100); ARTERIAL BLOOD GAS VENT MODE VC/AC; ARTERIAL BLOOD GAS VENT RATE 18 /MIN; ARTERIAL BLOOD GAS pH 7.25 (7.35-7.45); CARBOXYHEMOGLOBIN 0.9 % THgb (0.0-6.9); HCO3- 23.7 (22-28); HGB O2 SAT 92.5 g/dF (94-100); Methhemoglobin 0.9 % (1.4-1.5); paO2 pAO1 0.12
[2023-11-02 03:10] LABS: ABG SITE RIGHT RADIAL; ALLEN TEST OK? YES; ARTERIAL BLD GAS TIDAL VOLUME 500 cc; ARTERIAL BLOOD GAS PEEP 5 cmH2O
[2023-11-02 03:33] LABS: Appearance Clear (Clear); Bacteria None Seen /HPF (None Seen); Bilirubin Negative (Negative); Blood Negative (Negative); Epithelial Cells None Seen /HPF (None Seen); Glucose, Urine Negative (Negative); Hyaline Casts NONE SEEN /LPF (0-2); Ketones Negative (Negative); Leukocyte Esterase Negative (Negative); Nitrite Negative (Negative); Ph 5.5 (4.6-8.0); Protein,Urine Dip Negative (Negative); RBC 0-2 /HPF (0-5); Specific Gravity >=1.030 (1.005-1.030); WBC 0-2 /HPF (0-5)
[2023-11-02 03:37] LABS: ADD URINE CULTURE? NO (NO)
--- NOTE | 2023-11-02 03:41 | XRAY ---
CLINICAL HISTORY: sob after chest tube COMPARISON: 11/02/2023 TECHNIQUE: X-ray chest frontal projection. FINDINGS: Chest seen in the subcutaneous tissues of the right lateral wall. 80-90% of the pneumothorax is noted in the right hemithorax. Shift of the mediastinum contralaterally. Pacemaker with its leads seen in place. Significantly reduced left lung volume with prominent and scattered nodular opacities. Blunting of the left costophrenic. Calcification aortic arch/ IMPRESSION: 1. As compared to the previous chest tube is seen in the submitted tissues of the right lateral wall. 2. Interval development of tension pneumothorax. 3. Significantly reduced left-side lung volume with patchy nodularity needs further evaluation. [facility] ER was called at [phone] at 2:35 AM HEALTH SAFETY MANAGER, 11/02/2023 and results were verbally communicated to Dr Norris Branham Electronically Signed by: Homero Tam MD. (11/02/2023 03:37:19 EDT)
--- NOTE | 2023-11-02 04:20 | XRAY ---
CLINICAL HISTORY: ETT PLACEMENT, OG TUBE PLACEMENT COMPARISON: Dated: 11/02/2023: TECHNIQUE: X-ray chest in AP Portable projection. FINDINGS: Well-placed ETT with its tip seen about 4 cm above the emery. OG tube is seen well-placed. The previous chest tube is not seen. Regression of the size of previous pneumothorax in the right hemithorax. Minimal shift of the mediastinum contralaterally. Pacemaker with its leads seen in place. Re-demonstration of the reduced left lung volume with prominent and scattered nodular opacities. Blunting of the left costophrenic angle is seen again. Calcification aortic arch. Re-demonstration of thoracic spine spondylosis. IMPRESSION: 1. As compared to the previous, the chest tube is not seen. 2. Regression of the size of previous pneumothorax in the right hemithorax. 3. Well placed ETT with its tip seen about 4 cm above the emery. 4. Re-demonstration of the reduced left lung volume with prominent and scattered nodular opacities. 5. Blunting of the left costophrenic angle is seen again. [facility] ER was called at [phone] at 2:35 AM TRUSS PULLER HELPER, 11/02/2023 and Norris Conner was informed about positive findings. Electronically Signed by: Homero Tam MD. (11/02/2023 04:15:12 EDT)
[2023-11-02 04:34] VITALS: RESP 21
[2023-11-02 04:35] VITALS: O2SAT 92
[2023-11-02 04:44] LABS: A-aADO2 371; ABG HEMOGLOBIN 16.7; ABG POTASSIUM 4.7 (3.5-5.1); ARTERIAL BLD GAS O2 SATURATION 99.9 % (95-100); ARTERIAL BLOOD GAS BASE EXCESS -3.5 (-2.0-2.0); ARTERIAL BLOOD GAS FIO2 80 %; ARTERIAL BLOOD GAS PCO2 53 mmHg (35-45); ARTERIAL BLOOD GAS PO2 133 mmHg (75-100); ARTERIAL BLOOD GAS pH 7.27 (7.35-7.45); CARBOXYHEMOGLOBIN 1.6 % THgb (0.0-6.9); HCO3- 24.3 (22-28); HGB O2 SAT 97.5 g/dF (94-100); Methhemoglobin 0.8 % (1.4-1.5); paO2 pAO1 0.26
[2023-11-02] MEDS ORDERED: NOREPINEPHRINE 8 MG/250 ML-D5W 8 MG/250 ML PLAST..BAG IV ONE (04:49)
[2023-11-02] MEDS ORDERED: Sodium Chloride 0.9% 1000 ML 1,000 ML ONE (04:51)
[2023-11-02] MEDS ORDERED: ROCEPHIN 2 GM/100 ML NACL 2 GM/100 ML IVPB IV ONE (04:57)
--- NOTE | 2023-11-02 05:24 | XRAY ---
CLINICAL HISTORY: Post chest tube placement COMPARISON: Dated: 11/02/2023: TECHNIQUE: X-ray chest in AP Portable projection. FINDINGS: Well-placed right-sided chest tube. Well-placed ETT with its tip seen about 4 cm above the emery. OG tube is seen as well-placed. Marked regression of the previous pneumothorax in the right hemithorax. Minimal shift of the mediastinum contralaterally. Pacemaker with its leads seen in place. Re-demonstration of the reduced left lung volume with prominent and scattered nodular opacities. Blunting of the left costophrenic angle is seen again. Calcification aortic arch. Re-demonstration of thoracic spine spondylosis. IMPRESSION: 1. As compared to the previous, the right sided chest tube is seen well placed. 2. Marked regression of the size of previous pneumothorax in the right hemithorax. 3. Well placed ETT with its tip seen about 4 cm above the emery. 4. Re-demonstration of the reduced left lung volume with prominent and scattered nodular opacities. 5. Blunting of the left costophrenic angle is seen again. Electronically Signed by: Homero Tam MD. (11/02/2023 05:19:59 EDT)
[2023-11-02 05:28] VITALS: BP 120/75; PULSE 100
--- NOTE | 2023-11-02 08:36 | XRAY ---
Indication: Short of breath. Comparison: June 11, 2023 Portable chest demonstrates new large approximately 75% right pneumothorax. Left lung underinflated again with mild left base infiltrate/atelectasis. Heart remains enlarged with left AICD. Bony thorax intact again with osteopenia and degenerative changes pain Comment: Telephone report was given to Dr. Pisano at 1948 hrs on November 01, 2023.
--- NOTE | 2023-11-02 08:42 | XRAY ---
Indication: Short of breath. Large right pneumothorax on chest radiograph earlier in the day. Multiple contiguous axial images obtained through the chest using 100 cc Isovue 370 contrast and PE protocol as ordered. Comparison: None Good opacification of the pulmonary arteries to include the lobar and segmental branches. No pulmonary embolus. Heart not enlarged with left pacemaker. Aorta mildly arteriosclerotic without aneurysm/dissection. No pathologic mediastinal/hilar lymphadenopathy. Lungs demonstrates large right pneumothorax greater than 75% without effusion. Left lung inflated with scattered fibrosis/scarring but no focal infiltrate, consolidation, or effusion. Bony thorax intact with osteopenia, mild/moderate degenerative changes throughout visualized spine. CT abdomen/pelvis report septally. Impression: 1. Negative pulmonary embolus. 2. Known large right pneumothorax already reported on chest radiograph earlier in the day. 3. Chronic findings including cardiomegaly, pulmonary fibrosis/scarring, arteriosclerotic disease, and chronic bony findings.
--- NOTE | 2023-11-02 08:50 | XRAY ---
Indication: Abdomen pain. Short of breath. Large right pneumothorax on chest radiograph earlier in the day. Multiple contiguous axial images obtained through the abdomen and pelvis without contrast as ordered. CT chest PE exam reported separately. Noncontrasted stomach and bowel loops appear nonobstructed. Diffuse scattered colonic diverticulosis greatest in sigmoid colon without diverticulitis. Previous cholecystectomy. Tiny chronic pancreatitis calcifications. No free fluid/air. Remaining liver, pancreas, spleen, adrenal glands, kidneys, ureters, and bladder are unremarkable. Scattered arteriosclerotic disease with large infrarenal fusiform aneurysm measuring 8.5 x 8.5 cm in greatest axial dimension and at least 11 cm in CC dimension. Aortobiiliac stents present. Lack of IV contrast precludes further characterization and patency of stent grafts. Osseous structures intact with osteopenia, mild/moderate degenerative changes throughout thoracolumbar spine, mild levoscoliosis centered at L4, and mild degenerative changes both hips. Superior right femur head demonstrates subcortical serpiginous sclerosis either sequela old injury/trauma versus chronic avascular necrosis. Impression: 1. 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 Lack of IV contrast precludes further characterization. 2. Chronic findings including colonic diverticulosis, chronic pancreatitis calcifications, and chronic bony findings. 3. Remaining CT abdomen/pelvis without contrast exam is negative.
--- NOTE | 2023-11-02 09:08 | XRAY ---
CLINICAL HISTORY: chest tube placement COMPARISON: 11/01/2023 TECHNIQUE: x-ray chest AP portable projection FINDINGS: Rotated patient. No chest tube is seen. Right-sided pneumothorax noted 40-60%. Shift of the mediastinum towards left side likely due to the rotation of the patient rather than developing tension pneumothorax. A metallic marker/artery forceps is seen at the possible site of the insertion site of the chest tube along the right lateral chest wall. Blunting of the left costophrenic angle likely due to the pleural effusion on left side Pacemaker with its leads in place. There is reduced lung volume on the left side Re-demonstration of thoracic spine spondylosis. IMPRESSION: 1. Re-demonstration of a pneumothorax. 2. No chest tube is seen. [facility] ER was called at [phone] at 1:45 AM STEREOPTIC PROJECTION TOPOGRAPHER, 11/02/2023 and results were verbally communicated to Dr Norris Branham. Electronically Signed by: Homero Tam MD. (11/02/2023 02:51:51 EDT)
[2023-11-03 05:04] LABS: ABG SITE RIGHT RADIAL; ALLEN TEST OK? YES
== END 2023-11-02 05:14 | disposition short-term general hospital (02) ==
LOC: ED 18:50
DX: J93.0 Spontaneous tension pneumothorax (principal); R06.03 Acute respiratory distress; R07.9 Chest pain, unspecified; E78.5 Hyperlipidemia, unspecified; I10 Essential (primary) hypertension; Z79.01 Long term (current) use of anticoagulants; Z79.899 Other long term (current) drug therapy
CPT/HCPCS: 0241U; 31500; 32551; 36000; 36415; 36600; 71045; 71260; 74176; 80053; 81001; 82375; 82803; 85025; 93005; 93041; 94002; 94640; 94760; 94799; 96365; 96366; 96374; 99285; 99291; 99292; J0696; J1170; J2704; J2919; J3010; J3475; J7165; A9270-GY